=== PATIENT | male | born 2000 | race Caucasian/White ===

== ENCOUNTER 2022-01-20 13:32 | Emergency (ER) | payer BC, SELFPAY ==
--- NOTE | 2022-01-20 13:33 | ED.MALEGU ---
HPI - Male Genitourinary General Chief complaint: Urogenital-Male Stated complaint: Testicular Problem Time Seen by Provider: 01/20/22 13:33 Source: patient Mode of arrival: ambulatory Limitations: no limitations History of Present Illness HPI Narrative: Mr. Munoz is a 20-year-old male patient presenting to the clinic today with complaints of left testicular pain. He reports that the discomfort started this morning when he woke up. No known injury to the testicle. He reports the testicle is only painful when it is touched. He denies any urinary symptoms, flank, or abdominal pain. Denies any pain currently however when the area is touched his pain is a 4 out of 10. Denies any heaviness of the scrotum. Denies any new sexual partners and has not had intercourse for 2 months. Denies any blood in semen. Related Data Allergies Allergy/AdvReac Type Severity Reaction Status Date / Time No Known Allergies Allergy Verified 01/20/22 13:46 Review of Systems Review of Systems: Pertinent positives per HPI. Patient denies any fever, chills, rash, headache, visual changes, dizziness, cough, runny nose, sore throat, shortness of breath, chest pain, palpitations, nausea, vomiting, diarrhea, constipation, abdominal pain, or any urinary issues. PMFSH Comments At the time of my signature, I reviewed and agree with the nursing past medical, surgical, social, and family history. There is no relevant family history pertinent to the patient complaint. Exam Narrative: General: Well-developed, well nourished, in no apparent distress. Head: Normocephalic, atraumatic. Cardio: Regular rate and rhythm, s1 and s2 normal, no murmur appreciated. Resp: Clear to auscultation bilaterally, no rhonchi, rales, wheezing or rubs. Abdomen: Soft, pliable, bowel sounds present in all quadrants, non-tender to palpation, no organomegly, no CVAT tenderness. : Normal external male genitalia, no lesions or masses visualized, urethra midline without inflammation or discharge, bilateral testicles are descended without lesions or masses palpable, tenderness to palpation over the epididymis of the left testicle, no inguinal hernia palpable bilaterally. Course Course Emergency Course: Portions of this record may have been created with voice recognition software. Level of Care: Express Care Visit Vital Signs Vital signs: Vital signs reviewed MDM - Male Genitourinary MDM Narrative Medical decision making narrative: At the time of visit patient is resting comfortably on the exam table. He reports she has not been sexually active for approximately 2 months. Symptoms just began this morning. He denies any fever or chills. Or any urinary symptoms. Clean and dirty urine was obtained. UA was negative for any signs of infection or blood. I will send off dirty urine for chlamydia, trichomonas, and gonorrhea. I will give him a prescription for some doxycycline to treat epididymitis. Supportive measures were discussed with the patient he voiced understanding of discharge instructions and agrees to treatment plan. Differential Diagnosis Differential diagnosis: Likely urinary tract infection, urethritis, epididymitis, prostatitis, inguinal hernia and other (Testicular mass or lesion) Discharge Plan Discharge Clinical Impression: Epididymitis Patient Disposition: Home, Self-Care Condition: Stable Instructions: Antibiotic Form, Epididymitis (ED) Additional Instructions: Urine negative in the clinic for any signs of blood or infection. Will treat this as epididymitis and give prescription for doxycycline. Take doxycycline as prescribed and make sure you finish taking the antibiotics No sexual intercourse until you finish the antibiotics and you received the lab results Will send urine for trichomonas, chlamydia, and gonorrhea testing. May take Tylenol/Motrin as needed for pain or fever. Follow-up with your PCP in 3 to 5 days if symptoms persist or s
[2022-01-20 13:39] VITALS: BP 133/70; PULSE 84; RESP 20; TEMP 36.8; O2SAT 100
== END 2022-01-20 14:05 | disposition home or self-care (01) ==
PROVIDERS: Emergency Provider Nurse Practitioner Family
DX: N45.1 Epididymitis (principal)
CPT/HCPCS: 81003; 87491; 87591; 87661; 99203; G0463

== ENCOUNTER 2022-09-21 09:31 | Emergency (ER) | payer BC, SELFPAY ==
[2022-09-21 09:47] VITALS: BP 119/78; PULSE 113; RESP 16; TEMP 36.1; O2SAT 99
--- NOTE | 2022-09-21 09:53 | ED.NAVMDI ---
HPI - Nausea/Vomiting/Diarrhea General Chief complaint: Nausea/Vomiting/Diarrhea Stated complaint: Vomiting/Diarrhea Source: patient and RN notes reviewed History of Present Illness HPI Narrative: 22-year-old male presents to urgent care with complaints of vomiting and diarrhea since yesterday afternoon. Patient states his mom, sibling, and grandmother all have a stomach bug currently and he believes this is what he has. Patient also reports bilateral lower back soreness. Denies any injury. patient denies eating any questionable food. Denies any fevers, chills, chest pain, or shortness of breath. Patient states he has intermittent epigastric pain. Patient states he has vomited twice this morning but has been able to keep small sips of water down. Some parts of this dictation were generated by voice recognition software and may contain typographical and/or grammatical inaccuracies. Related Data Allergies Allergy/AdvReac Type Severity Reaction Status Date / Time No Known Allergies Allergy Verified 01/20/22 13:46 Review of Systems Review of Systems: Pertinent positives and pertinent negatives per HPI. PMFSH Comments At the time of my signature, I reviewed and agree with the nursing past medical, surgical, social, and family history. There is no relevant family history pertinent to the patient complaint. Exam Narrative: GENERAL: This is a well-nourished, well-developed patient, in no apparent distress. HEAD: normocephalic, atraumatic. EYES: PERRL. Sclera clear/white. Vision is grossly intact. EARS: External ears normal, auditory canals clear and without drainage, TMs normal without perforation. Hearing grossly intact. NOSE: External nose normal with no obvious nasal discharge, nares without redness, no rhinorrhea. THROAT: Mucous membranes moist, posterior pharynx clear. NECK: Neck supple, non-tender without lymphadenopathy, masses or thyromegaly. CARDIOVASCULAR: Regular rate and rhythm without murmurs, gallops, or rubs. RESPIRATORY: Clear to auscultation. Breath sounds equal bilaterally. No wheezes, rales, or rhonchi. GASTROINTESTINAL: Abdomen soft, non-tender, nondistended. Bowel sounds are active. No hepato-splenomegaly, or palpable masses. No guarding. SKIN: warm, intact with no suspicious lesions or rash, good texture and turgor. NEURO: awake, alert, and oriented to person, place and time. There were no obvious focal neurologic abnormalities. BACK: Nontender without deformity or crepitance. No flank tenderness. Course Course Level of Care: Express Care Visit Vital Signs Vital signs: Vital Signs Temperature 97 F L 09/21/22 09:47 Pulse Rate 113 H 09/21/22 09:47 Respiratory Rate 16 09/21/22 09:47 Blood Pressure 119/78 09/21/22 09:47 Pulse Oximetry 99 09/21/22 09:47 Oxygen Delivery Room Air 09/21/22 09:47 Temperature 97 F L 09/21/22 09:47 Pulse Rate 113 H 09/21/22 09:47 Respiratory Rate 16 09/21/22 09:47 Blood Pressure 119/78 09/21/22 09:47 Pulse Oximetry 99 09/21/22 09:47 Oxygen Delivery Room Air 09/21/22 09:47 Reviewed MDM - Nausea/Vomiting/Diarrhea MDM Narrative Medical decision making narrative: You've been diagnosed with a viral illness that would not require antibiotics at this time. Take the Zofran ODT at home as directed for nausea and get plenty of fluids. You may take Imodium for diarrhea. If you would like to eat food, you should follow the BRAT diet (bananas, rice, applesauce, and toast, or things of the like). If you develop any new or worsening symptoms, you should go to the emergency dept without hesitation. Follow up with your district supervisor in 2-5 days. Differential Diagnosis Differential diagnosis: Likely food poisoning, gastroenteritis and dehydration Critical Care Time Critical Care Time Critical Care Time: No Discharge Plan Discharge Clinical Impression: Gastroenteritis Patient Disposition: Home, Self-Care Condition: Stable Instructions:
== END 2022-09-21 10:09 | disposition home or self-care (01) ==
PROVIDERS: Emergency Provider Nurse Practitioner Family
DX: K52.9 Noninfective gastroenteritis and colitis, unspecified (principal)
CPT/HCPCS: 99213; G0463